=== PATIENT | female | born 1960 | race Caucasian/White ===

== ENCOUNTER 2022-09-11 04:27 | Emergency (ER) | payer BC ==
[~2022-09-11] VITALS: Ht 162.6 cm; Wt 61.2 kg
[~2022-09-11 04:27] MED LIST: ANASTROZOLE1 MG PO; CALCIUM + VITA1 EACH PO; FOSAMAX70 MG PO; MILK OF MA400 MG/5 M PO; PERCOCET 7.5-31 EACH PO; VITAMIN D1000 UNIT PO; VITAMIN D3400 UNIT PO
[2022-09-11] MEDS ORDERED: EPIPEN 2-P0.3 MG/0.3 IM (06:37)
== END 2022-09-11 07:30 | disposition home or self-care (01) ==
LOC: ED 04:27
DX: T63.441A Toxic effect of venom of bees, accidental (unintentional), initial encounter (principal); Z85.3 Personal history of malignant neoplasm of breast; Z79.899 Other long term (current) drug therapy
CPT/HCPCS: 96374; 96375; 99282-25; J0171; J1200; J2930; J7121

== ENCOUNTER 2022-10-20 19:11 | Emergency (ER) | payer OTHER, BC ==
[~2022-10-20] VITALS: Ht 162.6 cm; Wt 61.2 kg
[~2022-10-20 19:11] MED LIST changes: +EPIPEN 2-P0.3 MG/0.3 IM
[2022-10-20] MEDS ORDERED: HYDROCODON-ACE1 EA10 PO (23:07)
== END 2022-10-20 23:48 | disposition home or self-care (01) ==
LOC: ED 19:11
DX: M25.532 Pain in left wrist (principal); W01.0XXA Fall on same level from slipping, tripping and stumbling without subsequent striking against object, initial encounter; Y92.481 Parking lot as the place of occurrence of the external cause
CPT/HCPCS: 29125; 73110; 99283-25; A9270